=== PATIENT | female | born 1950 | race Caucasian/White ===

== ENCOUNTER 2016-12-31 10:28 | Inpatient (IN) | payer OTHER, MEDICARE ==
[~2016-12-31] VITALS: Ht 175.3 cm; Wt 107.3 kg
[2016-12-31] VITALS (10 sets, daily range): BP systolic 144–178; BP diastolic 68–87; PULSE 65–117; RESP 16–20; TEMP 97.1–98.9; O2SAT 95–99
[~2016-12-31 10:28] MED LIST: MEDR4PAK3 PO; PRIN5TAB
--- NOTE | 2016-12-31 10:57 | PD ---
HPI Chief Complaint: Abdominal Pain Time Seen by Provider: 10:37 Travel History International Travel<30 days: No Contact w/Intl Traveler<30days: No Traveled to known affect area: No History of Present Illness HPI Patient is a 66-year-old female who presents to emergency room with complaints of abdominal pain/back pain. Patient reports that on Tuesday, she was working her lawn, patient reports that she began to have back pain after her lawn work. Patient reports that throughout the week, she has continued to have pain to her back which radiates to her front which is intermittent in nature. Patient reports that she does feel diaphoretic and nauseous when she has these symptoms. Patient reports that she went to the [facility] on Tuesday and was told that she had constipation. Patient reports that she is concerned as she has been having normal bowel movements, reports that symptoms have been progressively getting worse and more intense when she has her symptoms. Patient denies any chest pain or shortness of breath. Patient admits to having nausea when she had symptoms with no episodes of emesis. Patient with no fevers or chills. Patient denies any dysuria, hematuria, urinary urgency or frequency. PFSH Past Medical History Diminished Hearing: No Hypertension: Yes Menopausal: Yes Social History Alcohol Use: Yes (1-2 wk) Tobacco Use: No Allergies-Medications (Allergen,Severity, Reaction): Coded Allergies: No Known Allergies (Verified , 12/31/16) Reported Meds & Prescriptions Reported Meds & Active Scripts Active Reported Glimepiride 4 Mg Tab 4 Mg PO BIDAC Reglan (Metoclopramide HCl) 10 Mg Tab 10 Mg PO TIDAC Cipro (Ciprofloxacin HCl) 500 Mg Tab 500 Mg PO BID Hydrochlorothiazide 25 Mg Tab 25 Mg PO DAILY Lisinopril 30 Mg Tab 30 Mg PO DAILY Review of Systems General / Constitutional: No: Fever Eyes: No: Visual changes HENT: No: Headaches Cardiovascular: Positive: Diaphoresis, No: Chest Pain or Discomfort Respiratory: No: Shortness of Breath Gastrointestinal: Positive: Nausea, Abdominal Pain, No: Constipation Genitourinary: Positive: Flank Pain, No: Urgency, Frequency, Dysuria Musculoskeletal: No: Pain Skin: No Rash Neurologic: No: Weakness Psychiatric: No: Depression Endocrine: No: Polydipsia Hematologic/Lymphatic: No: Easy Bruising Physical Exam Narrative GENERAL: NAD, nontoxic SKIN: Focused skin assessment warm/dry. HEAD: Atraumatic. Normocephalic. EYES: Pupils equal and round. No scleral icterus. No injection or drainage. ENT: No nasal bleeding or discharge. Mucous membranes pink and moist. NECK: Trachea midline. No JVD. CARDIOVASCULAR: Regular rate and rhythm. No murmur appreciated. RESPIRATORY: No accessory muscle use. Clear to auscultation. Breath sounds equal bilaterally. GASTROINTESTINAL: Abdomen soft, patient with tenderness to left flank to left upper to mid abdomen with no rebound or gaurding MUSCULOSKELETAL: No obvious deformities. No clubbing. No cyanosis. No edema. NEUROLOGICAL: Awake and alert. No obvious cranial nerve deficits. Motor grossly within normal limits. Normal speech. PSYCHIATRIC: Appropriate mood and affect; insight and judgment normal. Data Data Last Documented VS Vital Signs Date Time Temp Pulse Resp B/P Pulse Ox O2 Delivery O2 Flow Rate FiO2 12/31/16 13:35 65 16 175/68 99 Room Air 12/31/16 10:30 97.8 Orders Electrocardiogram (12/31/16 10:46) Complete Blood Count With Diff (12/31/16 10:46) Comprehensive Metabolic Panel (12/31/16 10:46) Prothrombin Time / Inr (Pt) (12/31/16 10:46) Act Partial Throm Time (Ptt) (12/31/16 10:46) Lipase (12/31/16 10:46) Chest, Single Ap (12/31/16 10:46) Ecg Monitoring (12/31/16 10:46) Bilateral Bp Monitoring (12/31/16 10:46) Iv Access Insert/Monitor (12/31/16 10:46) Oximetry (12/31/16 10:46) Sodium Chloride 0.9% Flush (Ns Flush) (12/31/16 11:00) Sodium Chlor 0.9% 1000 Ml Inj (Ns 1000 M (12/31/16 11:00) Ct Thorax/ Chest Wo Iv Contras (12/31/16 ) Ct Abd/Pel W/O Iv Contrast (12/31/16 ) Urinary Catheter Insert/Apply (12/31/16 11:51) Lorazepam Inj (Ativan Inj) (12/31/16 12:15) Urinalysis - C+S If Indicated (12/31/16 12:07) Ceftriaxone Inj (Rocephin Inj) (12/31/16 13:15) Blood Culture (12/31/16 13:17) Azithromycin Inj (Zithromax Inj) (12/31/16 13:30) Consult Urology (12/31/16 ) Admit Order (Ed Use Only) (12/31/16 14:00) Labs Laboratory Tests Test 12/31/16 12/31/16 11:18 12:15 White Blood Count 13.6 TH/MM3 Red Blood Count 3.92 MIL/MM3 Hemoglobin 11.4 GM/DL Hematocrit 33.9 % Mean Corpuscular Volume 86.3 FL Mean Corpuscular Hemoglobin 29.0 PG Mean Corpuscular Hemoglobin 33.6 % Concent Red Cell Distribution Width 11.9 % Platelet Count 371 TH/MM3 Mean Platelet Volume 9.2 FL Neutrophils (%) (Auto) 78.5 % Lymphocytes (%) (Auto) 12.1 % Monocytes (%) (Auto) 8.1 % Eosinophils (%) (Auto) 0.8 % Basophils (%) (Auto) 0.5 % Neutrophils # (Auto) 10.7 TH/MM3 Lymphocytes # (Auto) 1.6 TH/MM3 Monocytes # (Auto) 1.1 TH/MM3 Eosinophils # (Auto) 0.1 TH/MM3 Basophils # (Auto) 0.1 TH/MM3 CBC Comment AUTO DIFF Differential Comment AUTO DIFF CONFIRMED Prothrombin Time 10.2 SEC Prothromb Time International 0.9 RATIO Ratio Activated Partial 31.0 SEC Thromboplast Time Sodium Level 134 MEQ/L Potassium Level 4.8 MEQ/L Chloride Level 100 MEQ/L Carbon Dioxide Level 21.5 MEQ/L Anion Gap 13 MEQ/L Blood Urea Nitrogen 70 MG/DL Creatinine 4.60 MG/DL Estimat Glomerular Filtration 10 ML/MIN Rate Random Glucose 307 MG/DL Calcium Level 9.2 MG/DL Total Bilirubin 0.5 MG/DL Aspartate Amino Transf 15 U/L (AST/SGOT) Alanine Aminotransferase 21 U/L (ALT/SGPT) Alkaline Phosphatase 64 U/L Total Protein 7.8 GM/DL Albumin 3.0 GM/DL Lipase 340 U/L Urine Collection Type CLEAN CATCH Urine Color YELLOW Urine Turbidity CLEAR Urine pH 5.5 Urine Specific [place] 1.023 Urine Protein 30 mg/dL Urine Glucose (UA) 100 mg/dL Urine Ketones NEG mg/dL Urine Occult Blood SMALL Urine Nitrite NEG Urine Bilirubin NEG Urine Leukocyte Esterase NEG Urine RBC 10-14 /hpf Urine WBC 0-2 /hpf Urine Squamous Epithelial 6-8 /hpf Cells Urine Renal Epithelial Cells 0-5 /hpf Microscopic Urinalysis Comment CULT NOT INDICATED Urine Collection Time 12:15 [facility] Medical Decision Making Medical Screen Exam Complete: Yes Emergency Medical Condition: Yes Interpretation(s) Vital Signs Date Time Temp Pulse Resp B/P Pulse Ox O2 Delivery O2 Flow Rate FiO2 12/31/16 10:30 97.8 115 16 158/86 97 Differential Diagnosis Differential for Flank/abdominal pain could be from kidney stone, muscle strain , aortic dissection, pyelonephritis, cystitis Narrative Course Patient is a 66-year-old female who presents to emergency room for evaluation of back pain/abdominal pain which has been ongoing since Tuesday. Patient reports that her symptoms began after she did lawn work Tuesday. Patient reports that symptoms have been persistent but intermittent in nature reports that they are getting worse. Patient is tachycardic on emergency room, reports left side back pain radiating to her abdomen. Plan to obtain lab work, CTA ordered to rule out dissection. CTA canceled as patients creatine elevated at 4.6. ct without contrast ordered Patient now reports that she is currently being on antibiotics for a UTI. Patient reports that she has been on cipro for her uti CBC & BMP Diagram 12/31/16 11:18 Last Impressions Chest X-Ray 12/31/16 1046 Signed Impressions: Service Date/Time: Saturday, December 31, 2016 10:54 - CONCLUSION: Minimal basilar parenchymal opacities Petey Rodgers MD Chest CT 12/31/16 0000 Signed Impressions: Service Date/Time: Saturday, December 31, 2016 12:28 - CONCLUSION: Mild basilar infiltrates or atelectasis. Petey Rodgers MD CT abdomen/pelvis: moderate left hydronephrosis and proximal hydroureter to the level of 6-7mm in mid ureter, right kidney wtih perinephric fatty tissue stranding without any evidence of stone or hydronephrosis. CT of the chest shows minimal basilar parenchymal opacities to lower lung bases. Patient denies any cough or congestion or fever chills. Blood cultures obtained. Patient has been on cipro for treatment of UTI as outpatient. Patient with most likely pyelonephritis as she does have some stranding to her right kidney. IV Rocephin administered to patient. Patient also with 6-7 mm stone in the left mid ureter with a creatinine of 4.60. A Do catheter was placed to measure urine output. Kidney failure most likely multifactorial with causes which could be secondary to pyelonephritis as well as kidney stone. Patient denies history of renal insuffiency, reports that she had lab work performed 2 months ago by her primary care doctor and was told that "everything was normal." Call made to Dr. Cai to review case, plan to admit to [facility] for possible stent placement Case reviewed with Dr. Lewis who accepts pt to service Critical Care Narrative Aggregate critical care time was 30 minutes. Time to perform other separately billable procedures was not included in the critical care time. My time did not include minutes spent treating any other patients simultaneously or on activities that did not directly contribute to the patient's treatment. The services I provided to this patient were to treat and/or prevent clinically significant deterioration that could result in: , decompensation, deterioration I provided critical care services requiring my management, as noted below: Chart data review, documentation time, medication orders and management, vital sign assessments/reviewing monitor data, ordering and reviewing lab tests, ordering and interpreting/reviewing x-rays and diagnostic studies, care of the patient and discussion of the patient with the admitting physicians. Diagnosis Primary Impression: Kidney stone on left side Additional Impressions: Pyelonephritis Acute renal insufficiency Admitting Information Admitting Physician Requests: Anaya Friedman DO December 31, 2016 10:57
[2016-12-31] MEDS ORDERED: SODIUM CHLOR 0.9% 1000 ML INJ 1,000 ML IV ONE (11:00)
[2016-12-31] MEDS ORDERED: LISI30TA4 PO (11:06)
[2016-12-31] MEDS ORDERED: GLIM4TAB PO (11:06)
[2016-12-31] MEDS ORDERED: CIPR-9 PO (11:06)
[2016-12-31] MEDS ORDERED: HYDR25TA5 PO (11:06)
[2016-12-31] MEDS ORDERED: REGL10TA5 PO (11:06)
--- NOTE | 2016-12-31 11:18 | RADHPO ---
EXAM DATE/TIME: 12/31/2016 10:54 [facility] COMPARISON: No previous studies available for comparison. INDICATIONS : Patient states no known injury. Her complaint is left side lower back pain since last Tuesday, six day s ago. MEDICAL HISTORY : None. SURGICAL HISTORY : None. ENCOUNTER: Initial ACUITY: 4 - 6 days PAIN SCORE: 4/10 LOCATION: Left lower back. FINDINGS: Minimal scarring or atelectasis in the lung bases. No evidence of effusion. Cardiomediastinal contour s are normal. CONCLUSION: Minimal basilar parenchymal opacities Petey Rodgers MD on December 31, 2016 at 11:15 Board Certified Radiologist. This report was verified electronically.
[2016-12-31] MEDS: SODIUM CHLORIDE 0.9% FLUSH 10 ML FLUSH IVF PRN ×4 (11:31→15:19)
[2016-12-31 11:33] LABS: CHLORIDE 100 MEQ/L (98-107); POTASSIUM 4.8 MEQ/L (3.5-5.1); SODIUM (NA) 134 MEQ/L (136-145)
[2016-12-31 11:37] LABS: ANION GAP 13 MEQ/L (5-15); BICARBONATE 21.5 MEQ/L (21.0-32.0); BLOOD UREA NITROGEN 70 MG/DL (7-18); INTERNATIONAL NORMALIZED RATIO 0.9 RATIO; PROTHROMBIN TIME - PATIENT 10.2 SEC (9.8-11.6)
[2016-12-31 11:40] LABS: ALT (GPT) 21 U/L (10-53); AST (GOT) 15 U/L (15-37); GLOMERULAR FILTRATION RATE 10 ML/MIN (>89)
[2016-12-31 11:41] LABS: TOTAL BILIRUBIN ADULT 0.5 MG/DL (0.2-1.0)
[2016-12-31 11:43] LABS: ALKALINE PHOSPHATASE 64 U/L (45-117)
[2016-12-31 12:04] LABS: AUTOMATED NEUTROPHIL # 10.7 TH/MM3 (1.8-7.7); BASOPHIL # 0.1 TH/MM3 (0-0.2); BASOPHIL % 0.5 % (0.0-2.0); EOSINOPHIL # 0.1 TH/MM3 (0-0.4); EOSINOPHIL % 0.8 % (0.0-4.0); HEMATOCRIT 33.9 % (35.0-46.0); LYMPH % 12.1 % (9.0-44.0); LYMPHOCYTE # 1.6 TH/MM3 (1.0-4.8); MEAN CELL VOLUME 86.3 FL (80.0-100.0); MEAN CORPUSCULAR HGB CONC 33.6 % (32.0-36.0); MONO % 8.1 % (0.0-8.0); NEUT % 78.5 % (16.0-70.0); PLATELET COUNT 371 TH/MM3 (150-450); RED BLOOD COUNT 3.92 MIL/MM3 (4.00-5.30); RED CELL DISTRIBUTION WIDTH 11.9 % (11.6-17.2); WHITE BLOOD COUNT 13.6 TH/MM3 (4.0-11.0)
[2016-12-31 12:14] LABS: HEMO FLAGS AUTO DIFF
[2016-12-31] MEDS ORDERED: LORazepam 2 MG/ML VIAL IV PUSH ONE (12:15)
[2016-12-31 12:23] LABS: BLOOD, URINE SMALL (NEG); GLUCOSE,URINE 100 mg/dL (NEG); KETONE, URINE NEG (NEG); NITRITE,URINE NEG (NEG); PH, URINE 5.5 (5.0-8.5)
[2016-12-31 12:25] LABS: SCAN/DIFF AUTO DIFF CONFIRMED
[2016-12-31 12:33] LABS: METHOD OF COLLECTION CLEAN CATCH; URINE COLOR YELLOW (YELLW/STRAW)
[2016-12-31 12:34] LABS: COMMENT (UR) CULT NOT INDICATED; CULTURE IF INDICATED CULT NOT INDICATED; RENAL EPITHELIAL CELLS 0-5 /hpf; WBC, URINE 0-2 /hpf (0-5)
--- NOTE | 2016-12-31 12:53 | RADHPO ---
EXAM DATE/TIME: 12/31/2016 12:28 [facility] COMPARISON: No previous studies available for comparison. INDICATIONS : Intermittent upper back and left abdominal pain since Tuesday. RADIATION DOSE: 17.80 CTDIvol (mGy) ; Combined studies - Thorax/Abdomen/Pelvis MEDICAL HISTORY : Hypertension. Diabetes mellitus type 2. SURGICAL HISTORY : None. ENCOUNTER: Initial ACUITY: 4 - 6 days PAIN SCALE: 4/10 LOCATION: Left chest TECHNIQUE: Volumetric scanning of the chest was performed. Using automated exposure control and adjustment of t he mA and/or kV according to patient size, radiation dose was kept as low as reasonably achievable to obtain optimal diagnostic quality images. FINDINGS: LUNGS: Mild atelectasis or infiltrate in the lung bases bilaterally, slightly worse on the left than the rig ht. There are no suspicious nodules or masses identified. PLEURAE: There is no pleural thickening or pleural effusion. MEDIASTINUM: The heart and great vessels demonstrate no acute abnormality. There is no mediastinal or hilar lymph adenopathy. AXILLAE: Within normal limits. No lymphadenopathy. MUSCULOSKELETAL: Within normal limits for patient age. MISCELLANEOUS: The visualized upper abdominal organs demonstrate no acute abnormality. CONCLUSION: Mild basilar infiltrates or atelectasis. Petey Rodgers MD on December 31, 2016 at 12:46 Board Certified Radiologist. This report was verified electronically.
--- NOTE | 2016-12-31 13:05 | RADHPO ---
EXAM DATE/TIME: 12/31/2016 12:28 [facility] COMPARISON: No previous studies available for comparison. INDICATIONS : Intermittent upper back and left abdominal pain since Tuesday. ORAL CONTRAST: No oral contrast ingested. RADIATION DOSE: 17.80 CTDIvol (mGy) ; Combined studies - Thorax/Abdomen/Pelvis MEDICAL HISTORY : Diabetes mellitus type 2. Hypertension. SURGICAL HISTORY : None. ENCOUNTER: Initial ACUITY: 4 - 6 days PAIN SCALE: 6/10 LOCATION: Left Abdomen. TECHNIQUE: Volumetric scanning of the abdomen and pelvis was performed. Using automated exposure control and ad justment of the mA and/or kV according to patient size, radiation dose was kept as low as reasonably achievable to obtain optimal diagnostic quality images. FINDINGS: LOWER LUNGS: Mild bibasilar atelectasis left worse than right LIVER: Homogeneous density without lesion. There is no dilation of the biliary tree. No calcified gallston es. SPLEEN: Small adjacent splenule. No evidence of enlargement or mass PANCREAS: Within normal limits. KIDNEYS: Moderate left hydronephrosis and proximal hydroureter down to the level of a 6-7 mm stone in the mid ureter at about the level of the iliac crest. Mild nonspecific right-sided perinephric fatty tissue s tranding without evidence of stone or hydronephrosis. ADRENAL GLANDS: Within normal limits. VASCULAR: Retroaortic left renal vein. No aortic aneurysm. BOWEL/MESENTERY: The stomach, small bowel, and colon demonstrate no acute abnormality. There is no free intraperitone al air or fluid. ABDOMINAL WALL: Within normal limits. RETROPERITONEUM: There is no lymphadenopathy. BLADDER: No wall thickening or mass. REPRODUCTIVE: Fibroid uterus with a pedunculated fibroid extending superiorly and laterally from the right fundus r egion INGUINAL: There is no lymphadenopathy or hernia. MUSCULOSKELETAL: Within normal limits for patient age. CONCLUSION: 6-7 mm mid left ureteral stone. Petey Rodgers MD on December 31, 2016 at 12:51 Board Certified Radiologist. This report was verified electronically.
[2016-12-31] MEDS ORDERED: cefTRIAXone INJ 1,000 MG in SODIUM CHLORIDE 0.9% INJ 100 ML IV ONE (13:15)
[2016-12-31] MEDS ORDERED: AZITHROMYCIN INJ 500 MG in SODIUM CHLOR 0.9% 250 ML INJ 250 ML IV ONE (13:30)
[2016-12-31] MEDS ORDERED: ONDANSETRON HCL 4 MG/2 ML VIAL IV PUSH ONE (15:00)
--- NOTE | 2016-12-31 19:10 | HHI.HP ---
HPI Service [facility] Hospitalists Primary Care Physician Kenneth Walls M.D. Admission Diagnosis Renal failure, ureteral obstruction Chief Complaint: flank pain Travel History International Travel<30 Days: No Contact w/Intl Traveler <30 Da: No Traveled to Known Affected Are: No History of Present Illness Pt is 66 yo with dm, htn who presents with left flank pain. She thought it was msk from working in yard. went to urgent care and they thought some constipation and mild uti and gave cipro since Tuesday or 4 days. Some nausea and maybe less appetite. no hematuria. In ED found to have left ureter stone with hydro 6-7 mm. transferred to [facility] for urology. only taking tylenol for pain. Review of Systems Other left flank pain. Past Family Social History Past Medical History dm 2 htn anxiety Reported Medications Glimepiride 4 Mg Tab 4 Mg PO BIDAC Cipro (Ciprofloxacin HCl) 500 Mg Tab 500 Mg PO BID Hydrochlorothiazide 25 Mg Tab 25 Mg PO DAILY Lisinopril 30 Mg Tab 30 Mg PO DAILY Allergies: Coded Allergies: No Known Allergies (Verified , 12/31/16) Family History nc Social History no etoh/tob Physical Exam Vital Signs heent neg heart reg lung cta abd s/nt ext no edema Vital Signs Date Time Temp Pulse Resp B/P Pulse Ox O2 Delivery O2 Flow Rate FiO2 12/31/16 17:05 98.9 117 18 178/87 95 12/31/16 16:36 99 16 154/78 12/31/16 15:05 16 12/31/16 14:35 100 16 167/80 97 Room Air 12/31/16 13:35 65 16 175/68 99 Room Air 12/31/16 13:00 16 12/31/16 12:23 102 18 154/75 96 Room Air 12/31/16 11:35 105 16 144/78 96 Room Air 12/31/16 11:30 100 16 156/82 97 Room Air 12/31/16 11:07 16 98 Room Air 12/31/16 11:03 16 12/31/16 10:30 97.8 115 16 158/86 97 Laboratory Laboratory Tests Test 12/31/16 12/31/16 11:18 12:15 White Blood Count 13.6 Red Blood Count 3.92 Hemoglobin 11.4 Hematocrit 33.9 Mean Corpuscular Volume 86.3 Mean Corpuscular Hemoglobin 29.0 Mean Corpuscular Hemoglobin 33.6 Concent Red Cell Distribution Width 11.9 Platelet Count 371 Mean Platelet Volume 9.2 Neutrophils (%) (Auto) 78.5 Lymphocytes (%) (Auto) 12.1 Monocytes (%) (Auto) 8.1 Eosinophils (%) (Auto) 0.8 Basophils (%) (Auto) 0.5 Neutrophils # (Auto) 10.7 Lymphocytes # (Auto) 1.6 Monocytes # (Auto) 1.1 Eosinophils # (Auto) 0.1 Basophils # (Auto) 0.1 CBC Comment AUTO DIFF Differential Comment AUTO DIFF CONFIRMED Prothrombin Time 10.2 Prothromb Time International 0.9 Ratio Activated Partial 31.0 Thromboplast Time Sodium Level 134 Potassium Level 4.8 Chloride Level 100 Carbon Dioxide Level 21.5 Anion Gap 13 Blood Urea Nitrogen 70 Creatinine 4.60 Estimat Glomerular Filtration 10 Rate Random Glucose 307 Calcium Level 9.2 Total Bilirubin 0.5 Aspartate Amino Transf 15 (AST/SGOT) Alanine Aminotransferase 21 (ALT/SGPT) Alkaline Phosphatase 64 Total Protein 7.8 Albumin 3.0 Lipase 340 Urine Collection Type CLEAN CATCH Urine Color YELLOW Urine Turbidity CLEAR Urine pH 5.5 Urine Specific [place] 1.023 Urine Protein 30 Urine Glucose (UA) 100 Urine Ketones NEG Urine Occult Blood SMALL Urine Nitrite NEG Urine Bilirubin NEG Urine Leukocyte Esterase NEG Urine RBC 10-14 Urine WBC 0-2 Urine Squamous Epithelial 6-8 Cells Urine Renal Epithelial Cells 0-5 Microscopic Urinalysis Comment CULT NOT INDICATED Urine Collection Time 12:15 Date/Time Procedure Status Source Growth 12/31/16 13:55 Aerobic Blood Culture Received Blood Peripheral Pending 12/31/16 13:55 Anaerobic Blood Culture Received Blood Peripheral Pending Result Diagram: 12/31/16 1118 12/31/16 1118 Assessment and Plan Problem List: (1) FERMIN (acute kidney injury) Status: Acute Plan: Pt 66 yo with htn dm found to have left ureter stone/hydro 6-7mm fermin could be MF. stone, dehydration, ?related to meds like cipro or hctz will hydrate first with NS. further fermin w/up if cr fails to improve hold renaldo and hctz prn bp meds Urology consulted for cysto/stent ssi. hold oha. updated daughter at bedside. (2) Kidney stone on left side Status: Acute Plan: see above (3) HTN (hypertension) Status: Chronic Plan: see above (4) DM (diabetes mellitus) Status: Chronic Plan: see above Physician Certification 2 Midnight Certification Type: Admission for Inpatient Services Order for Inpatient Services 2The services are ordered in accordance with Medicare regulations or non- Medicare payer requirements, as applicable. In the case of services not specified as inpatient-only, they are appropriately provided as inpatient services in accordance with the 2-midnight benchmark. Estimated LOS (days): 2 2 days is the estimated time the patient will need to remain in the hospital, assuming treatment plan goals are met and no additional complications. Post-Hospital Plan: Home Mau Richard MD December 31, 2016 19:10
[2016-12-31] MEDS ORDERED: ACETAMINOPHEN/HYDROcodone 325 MG/5 MG TAB PO PRN (19:15)
[2016-12-31] MEDS ORDERED: ACETAMINOPHEN 325 MG TAB PO PRN (19:15)
[2016-12-31] MEDS ORDERED: ONDANSETRON HCL 4 MG/2 ML VIAL IV PUSH PRN (19:15)
[2016-12-31] MEDS: cloNIDine HCL 0.1 MG TAB PO PRN (21:27)
[2016-12-31] MEDS: INSULIN ASPART SUPPLEMENTAL SCALE SQ SCH (21:28)
[2016-12-31] MEDS: SODIUM CHLOR 0.9% 1000 ML INJ 1,000 ML IV SCH (21:29)
[2017-01-01] VITALS: BP 136/65; PULSE 95; RESP 19; TEMP 99; O2SAT 93
[2017-01-01 04:00] VITALS: BP 138/73; PULSE 89; RESP 19; TEMP 97.8; O2SAT 94
[2017-01-01] MEDS: SODIUM CHLOR 0.9% 1000 ML INJ 1,000 ML IV SCH ×3 (05:27→17:00)
[2017-01-01] MEDS: INSULIN ASPART SUPPLEMENTAL SCALE SQ SCH ×4 (05:29→20:02)
[2017-01-01 06:43] LABS: BICARBONATE 20.1 MEQ/L (21.0-32.0); POTASSIUM 4.6 MEQ/L (3.5-5.1)
[2017-01-01 08:00] VITALS: BP 140/75; PULSE 89; RESP 17; TEMP 97.4; O2SAT 94
[2017-01-01] MEDS ORDERED: PNEUMOCOCCAL POLYVALENT INJ 25 MCG/0.5 ML SYR IM ONE (09:00)
[2017-01-01] MEDS: cefTRIAXone INJ 1,000 MG in SODIUM CHLORIDE 0.9% INJ 100 ML IV SCH (09:09)
[2017-01-01] MEDS ORDERED: INFLUENZA VIRUS VACCINE (QUADRIVALENT) 0.5 ML SYR IM ONE (10:00)
--- NOTE | 2017-01-01 11:43 | PD.CONS ---
[facility] Service Urology Consult Requested By Reason for Consult Left ureteral calculus Primary Care Physician Kenneth Walls M.D. Diagnosis: (1) FERMIN (acute kidney injury) ICD Code: N17.9 (2) Kidney stone on left side ICD Code: N20.0 (3) HTN (hypertension) ICD Code: I10 (4) DM (diabetes mellitus) ICD Code: E11.9 History of Present Illness 66-year-old female with no prior history of nephrolithiasis who presented to the emergency room with worsening left flank pain. Patient reports that symptoms began 5 days prior to arrival while gardening. She thought perhaps she had pulled a muscle however the symptoms never fully abated. Workup in the restroom include a CT scan of the abdomen and pelvis that demonstrated an approximate 7 mm mid left ureteral calculus causing left hydronephrosis. There is no hydronephrosis or stone seen on the right. Blood work included elevation of serum creatinine measured at 4.6. Patient denies diarrhea and only had one episode of emesis over the past week. She denies dysuria or gross hematuria. At the time of consultation the patient reported that her pain was well managed. Review of Systems Constitutional: DENIES: Fever, Night Sweats Genitourinary: DENIES: Hematuria, Dysuria Musculoskeletal: COMPLAINS OF: Back pain (left flank) Past Family Social History Past Medical History Diabetes mellitus Hypertension Anxiety Past Surgical History No prior major surgery Reported Medications Refer to EMR Allergies: Coded Allergies: No Known Allergies (Verified , 12/31/16) Active Ordered Medications Refer to EMR Family History Reviewed and noncontributory Social History Denies tobacco, alcohol or intravenous drug abuse Physical Exam Vital Signs Date Time Temp Pulse Resp B/P Pulse Ox O2 Delivery O2 Flow Rate FiO2 01/01/17 08:00 97.4 89 17 140/75 94 01/01/17 04:00 97.8 89 19 138/73 94 01/01/17 00:00 99.0 95 19 136/65 93 12/31/16 20:00 97.1 114 19 178/87 97 12/31/16 17:05 98.9 117 18 178/87 95 12/31/16 16:36 99 16 154/78 12/31/16 15:05 16 12/31/16 14:35 100 16 167/80 97 Room Air 12/31/16 13:35 65 16 175/68 99 Room Air 12/31/16 13:00 16 12/31/16 12:23 102 18 154/75 96 Room Air Physical Exam GENERAL: This is a well-nourished, well-developed patient, in no apparent distress. SKIN: No rashes, ecchymoses or lesions. Cool and dry. HEAD: Atraumatic. Normocephalic. No temporal or scalp tenderness. EYES: Pupils equal round and reactive. Extraocular motions intact. No scleral icterus. No injection or drainage. ENT: Nose without bleeding, purulent drainage or septal hematoma. Throat without erythema, tonsillar hypertrophy or exudate. Uvula midline. Airway patent. NECK: Trachea midline. No JVD or lymphadenopathy. Supple, nontender, no meningeal signs. GASTROINTESTINAL: Abdomen soft, non-tender, nondistended. No hepato-splenomegaly , or palpable masses. No guarding. GENITOURINARY: No CVA tenderness MUSCULOSKELETAL: Extremities without clubbing, cyanosis, or edema. No joint tenderness, effusion, or edema noted. No calf tenderness. Negative Homans sign bilaterally. NEUROLOGICAL: Awake and alert. Cranial nerves II through XII intact. Motor and sensory grossly within normal limits. Five out of 5 muscle strength in all muscle groups. Normal speech. Laboratory Tests Test 12/31/16 01/01/17 12:15 05:22 Urine Collection Type CLEAN CATCH Urine Color YELLOW Urine Turbidity CLEAR Urine pH 5.5 Urine Specific Sylvia 1.023 Urine Protein 30 Urine Glucose (UA) 100 Urine Ketones NEG Urine Occult Blood SMALL Urine Nitrite NEG Urine Bilirubin NEG Urine Leukocyte Esterase NEG Urine RBC 10-14 Urine WBC 0-2 Urine Squamous Epithelial 6-8 Cells Urine Renal Epithelial Cells 0-5 Microscopic Urinalysis Comment CULT NOT INDICATED Urine Collection Time 12:15 Sodium Level 135 Potassium Level 4.6 Chloride Level 103 Carbon Dioxide Level 20.1 Anion Gap 12 Blood Urea Nitrogen 59 Creatinine 3.69 Estimat Glomerular Filtration 12 Rate Random Glucose 197 Calcium Level 8.5 Date/Time Procedure Status Source Growth 12/31/16 14:00 Aerobic Blood Culture - Preliminary Resulted Blood Peripheral NO GROWTH IN 1 DAY 12/31/16 14:00 Anaerobic Blood Culture - Preliminary Resulted Blood Peripheral NO GROWTH IN 1 DAY 12/31/16 13:17 Aerobic Blood Culture Received Blood Peripheral Pending 12/31/16 13:17 Anaerobic Blood Culture Received Blood Peripheral Pending Result Diagram: 12/31/16 1118 01/01/17 0522 Imaging Last Impressions Chest X-Ray 12/31/16 1046 Signed Impressions: Service Date/Time: Saturday, December 31, 2016 10:54 - CONCLUSION: Minimal basilar parenchymal opacities Petey Rodgers MD Chest CT 12/31/16 0000 Signed Impressions: Service Date/Time: Saturday, December 31, 2016 12:28 - CONCLUSION: Mild basilar infiltrates or atelectasis. Petey Rodgers MD Abdomen/Pelvis CT 12/31/16 0000 Signed Impressions: Service Date/Time: Saturday, December 31, 2016 12:28 - CONCLUSION: 6-7 mm mid left ureteral stone. Petey Rodgers MD Assessment and Plan Assessment and Plan Urologic impression: #1 obstructing 7 mm left midureteral calculus #2 elevation of the serum creatinine cannot be entirely explained by the presence of a unilateral obstructing ureteral calculus Plan: #1 keep patient nothing by mouth #2 patient scheduled for cystoscopy, left retrograde pyelogram and left ureteral stent placement today #3 will eventually require outpatient shockwave lithotripsy Doug Cai MD January 01, 2017 11:42
[2017-01-01 12:00] VITALS: BP 154/72; PULSE 92; RESP 17; TEMP 97.5; O2SAT 94
[2017-01-01] MEDS: LORazepam 1 MG TAB PO PRN ×2 (12:15→22:29)
[2017-01-01] MEDS ORDERED: PROPOFOL 200 MG/20 ML AMP IV ONE (12:46)
[2017-01-01] MEDS ORDERED: ONDANSETRON HCL 4 MG/2 ML VIAL IV PUSH ONE (12:46)
[2017-01-01] MEDS ORDERED: fentaNYL CITRATE 250 MCG/5 ML AMP ONE (13:08)
[2017-01-01] MEDS ORDERED: MIDAZOLAM HCL 2 MG/2 ML VIAL ONE (13:08)
[2017-01-01] MEDS ORDERED: IOHEXOL 350 MG/ML 10 ML VIAL (for RAD DIAG) OTHER ONE (13:45)
--- NOTE | 2017-01-01 14:18 | PD.OP ---
Operative Report Date of Surgery: January 01, 2017 Preoperative Diagnosis: (1) Ureteral calculus, left Postoperative Diagnosis: (1) Ureteral calculus, left Procedure: Cystoscopy, left retrograde pyelogram, left ureteroscopy, endoscopic stone extraction and insertion left open-ended ureteral catheter. Anesthesia: General Surgeon: Doug Cai Senior Scheduler(s): None Operation and Findings: Indication for procedure: Case of a pleasant 66-year-old female with an obstructing 7 mm mid left ureteral calculus who presents now for cystoscopy, left foot dated pyelogram and left ureteral stent placement. Operative procedure in detail: Patient was brought to the operating room suite and placed supine on the cystoscopy table. She was then placed under general anesthesia. She was then repositioned in the dorsal lithotomy position and prepped and draped in normal sterile fashion. After appropriate timeout was undertaken I proceeded with cystoscopic evaluation utilizing the rigid cystoscope with a 20 Czech sheath and 30 lens. Careful inspection demonstrated the left ureteral calculus to be at the left ureteral orifice with a few tiny stone fragments floating within the urinary bladder. I utilized the flexible forceps and was able to retrieve the calculus under direct vision. I next inserted a sensor 0.035 wire of the patient's left ureter without any difficulty. A 6 Czech open catheter was advanced over the wire several centimeters beyond the ureteral orifice and the wire withdrawn. A retrograde pyelogram study was then performed that demonstrated a dilated collecting system with sluggish drainage of the distal third of the ureter. The guidewire was introduced and the open-ended catheter was removed. The guidewire was secured to sterile drape with hemostat and the self dilating ureteroscope was then utilized to perform visualization of the left ureter for any retained stone fragments. I was able to easily advance the ureteroscope all the way up to the left UPJ and no additional stone fragments were seen. The scope was then withdrawn and the cystoscope reintroduced. The 6 Czech open ureteral catheter was advanced over the previously past wire and into the left renal pelvis and the wire was withdrawn. A 16 Czech 10 cc Do catheter was then placed and the ureteral catheter anchored to the Do via a connector. Both catheters were then placed to gravity drainage. The patient was transferred to the PACU in satisfactory condition having tolerated the procedures well. Doug Cai MD January 01, 2017 14:18
[2017-01-01 16:00] VITALS: BP 159/83; PULSE 104; RESP 18; TEMP 96.5; O2SAT 94
--- NOTE | 2017-01-01 16:37 | HHI.PR ---
Subjective Remarks feels well. Objective Vitals heart reg lung cta abd s/nt ext no edema Vital Signs Date Time Temp Pulse Resp B/P Pulse Ox O2 Delivery O2 Flow Rate FiO2 01/01/17 16:00 96.5 104 18 159/83 94 01/01/17 14:45 97.6 90 12 138/65 96 Room Air 01/01/17 14:30 94 12 135/65 96 Nasal Cannula 2 01/01/17 14:22 97.6 95 12 131/64 97 Nasal Cannula 2 01/01/17 12:00 97.5 92 17 154/72 94 01/01/17 08:00 97.4 89 17 140/75 94 01/01/17 04:00 97.8 89 19 138/73 94 01/01/17 00:00 99.0 95 19 136/65 93 12/31/16 20:00 97.1 114 19 178/87 97 12/31/16 17:05 98.9 117 18 178/87 95 12/31/16 12/31/16 01/01/17 15:00 23:00 07:00 Intake Total 470 ml 120 ml Output Total 500 ml 600 ml Balance -30 ml -480 ml Intake Oral 120 ml 120 ml IV Total 350 ml Output Urine Total 500 ml 600 ml # Bowel Movements 0 0 Result Diagram: 12/31/16 1118 01/01/17 0522 A/P Problem List: (1) FERMIN (acute kidney injury) Status: Acute Plan: Pt 66 yo with htn dm found to have left ureter stone/hydro 6-7mm fermin could be MF. stone, dehydration, ?related to meds like cipro or hctz renal function slowly improving. cont agressive ivf and recheck in AM DR Cai removed stone and placed stent. pulliam and stent removal tomorrow and plan d/c home. hold renaldo and hctz prn bp meds ssi. hold oha. (2) Kidney stone on left side Status: Acute Plan: see above (3) HTN (hypertension) Status: Chronic Plan: see above (4) DM (diabetes mellitus) Status: Chronic Plan: see above Mau Richard MD January 01, 2017 16:37
[2017-01-01 20:00] VITALS: BP 160/75; PULSE 103; RESP 17; TEMP 97.5; O2SAT 97
--- NOTE | 2017-01-01 22:04 | EKG ---
Date Performed: 12/31/2016 Time Performed: 10:59:24 PTAGE: 66 years EKG: Sinus tachycardia Possible left anterior fascicular block Borderline ECG NO PREVIOUS TRACING DOCTOR: Mychal Boudreaux Interpretating Date/Time 01/01/2017 22:00:32
[2017-01-01] MEDS: cloNIDine HCL 0.1 MG TAB PO PRN (23:15)
[2017-01-02] VITALS: BP 179/76; PULSE 101; RESP 17; TEMP 95.6; O2SAT 96
[2017-01-02] MEDS: SODIUM CHLOR 0.9% 1000 ML INJ 1,000 ML IV SCH ×3 (01:08→16:02)
[2017-01-02 04:00] VITALS: BP 140/72; PULSE 86; RESP 17; TEMP 96.8; O2SAT 96
[2017-01-02 04:22] LABS: AUTOMATED NEUTROPHIL # 5.9 TH/MM3 (1.8-7.7); BASOPHIL % 0.3 % (0.0-2.0); EOSINOPHIL # 0.2 TH/MM3 (0-0.4); EOSINOPHIL % 1.6 % (0.0-4.0); HEMATOCRIT 30.9 % (35.0-46.0); LYMPH % 33.5 % (9.0-44.0); LYMPHOCYTE # 3.5 TH/MM3 (1.0-4.8); MEAN CELL VOLUME 86.6 FL (80.0-100.0); MEAN CORPUSCULAR HEMOGLOBIN 28.8 PG (27.0-34.0); MEAN CORPUSCULAR HGB CONC 33.2 % (32.0-36.0); MONO % 8.5 % (0.0-8.0); NEUT % 56.1 % (16.0-70.0); PLATELET COUNT 346 TH/MM3 (150-450); RED BLOOD COUNT 3.57 MIL/MM3 (4.00-5.30); RED CELL DISTRIBUTION WIDTH 12.5 % (11.6-17.2); WHITE BLOOD COUNT 10.5 TH/MM3 (4.0-11.0)
[2017-01-02 04:23] LABS: BICARBONATE 21.5 MEQ/L (21.0-32.0); POTASSIUM 4.4 MEQ/L (3.5-5.1)
[2017-01-02 04:27] LABS: HEMO FLAGS AUTO DIFF
[2017-01-02] MEDS: INSULIN ASPART SUPPLEMENTAL SCALE SQ SCH ×3 (06:45→17:07)
[2017-01-02] MEDS: cefTRIAXone INJ 1,000 MG in SODIUM CHLORIDE 0.9% INJ 100 ML IV SCH (07:32)
[2017-01-02 08:00] VITALS: BP 138/72; PULSE 89; RESP 17; TEMP 97; O2SAT 94
[2017-01-02 09:19] LABS: PLATELET ESTIMATE SMEAR NORMAL (NORMAL); PLATELET MORPHOLOGY NORMAL (NORMAL); SCAN/DIFF AUTO DIFF CONFIRMED
[2017-01-02 12:00] VITALS: BP 155/73; PULSE 88; RESP 17; TEMP 97.6; O2SAT 95
--- NOTE | 2017-01-02 13:27 | HHI.PR ---
Subjective Remarks FEELS GREAT. WANTS TO GO HOME. Objective Vitals heart reg lung cta abd /snt ext no edema Vital Signs Date Time Temp Pulse Resp B/P Pulse Ox O2 Delivery O2 Flow Rate FiO2 01/02/17 12:00 97.6 88 17 155/73 95 01/02/17 08:00 97.0 89 17 138/72 94 01/02/17 04:00 96.8 86 17 140/72 96 01/02/17 00:00 95.6 101 17 179/76 96 01/01/17 20:00 97.5 103 17 160/75 97 01/01/17 16:00 96.5 104 18 159/83 94 01/01/17 14:45 97.6 90 12 138/65 96 Room Air 01/01/17 14:30 94 12 135/65 96 Nasal Cannula 2 01/01/17 14:22 97.6 95 12 131/64 97 Nasal Cannula 2 01/01/17 01/01/17 01/02/17 15:00 23:00 07:00 Intake Total 1545 ml 655 ml 1362 ml Output Total 250 ml 1150 ml 750 ml Balance 1295 ml -495 ml 612 ml Intake Oral 240 ml 240 ml IV Total 1295 ml 415 ml 1122 ml Other 250 ml Output Urine Total 250 ml 1150 ml 750 ml Result Diagram: 01/02/17 0334 01/02/17 0334 A/P Problem List: (1) FERMIN (acute kidney injury) Status: Acute Plan: Pt 66 yo with htn dm found to have left ureter stone/hydro 6-7mm fermin could be MF. stone, dehydration, ?related to meds like cipro or hctz renal function improving stone extracted. stent and pulliam out. urinating well stat bmp..if still trending down then d/c home with f/u. stone sent for analysis. (2) Kidney stone on left side Status: Acute Plan: see above (3) HTN (hypertension) Status: Chronic Plan: see above (4) DM (diabetes mellitus) Status: Chronic Plan: see above Mau Richard MD January 02, 2017 13:27
--- NOTE | 2017-01-02 13:30 | HHI.DCPOC ---
Discharge Care Plan Diagnosis: (1) Kidney stone on left side (2) DM (diabetes mellitus) (3) HTN (hypertension) Goals to Promote Your Health * To prevent worsening of your condition and complications * To maintain your health at the optimal level Directions to Meet Your Goals Take your medications as prescribed Follow your dietary instruction Follow activity as directed Keep your appointments as scheduled Take your immunizations and boosters as scheduled If your symptoms worsen call your PCP, if no PCP go to Urgent Care Center or Emergency Room Smoking is Dangerous to Your Health. Avoid second hand smoke Call the 24-hour hour crisis hotline for domestic abuse at Mau Richard MD January 02, 2017 13:30
--- NOTE | 2017-01-02 13:53 | HHI.PR ---
Subjective Patient symptoms today Postoperative day #1 Feels great Reports Do and left ureteral catheter were removed this morning and she is now voiding without difficulty Objective Vital Signs Vital Signs Date Time Temp Pulse Resp B/P Pulse Ox O2 Delivery O2 Flow Rate FiO2 01/02/17 12:00 97.6 88 17 155/73 95 01/02/17 08:00 97.0 89 17 138/72 94 01/02/17 04:00 96.8 86 17 140/72 96 01/02/17 00:00 95.6 101 17 179/76 96 01/01/17 20:00 97.5 103 17 160/75 97 01/01/17 16:00 96.5 104 18 159/83 94 01/01/17 14:45 97.6 90 12 138/65 96 Room Air 01/01/17 14:30 94 12 135/65 96 Nasal Cannula 2 01/01/17 14:22 97.6 95 12 131/64 97 Nasal Cannula 2 Intake & Output 01/02/17 01/02/17 06:59 18:59 Intake Total 2017 ml Output Total 1900 ml Balance 117 ml Intake Oral 480 ml IV Total 1537 ml Output Urine Total 1900 ml Result Diagram: 01/02/17 0334 01/02/17 033 Objective Remarks Abdomen soft, nondistended nontender No CVA tenderness Medications and IVs Current Medications Medications (Trade) Dose Ordered Sig/Jefe Route Start Time Stop Time Status Last Admin (NS Flush) 2 ml UNSCH PRN IVF 12/31/16 11:00 12/31/16 15:19 (Zofran Inj) 4 mg Q4HR PRN IV PUSH 12/31/16 19:15 (Tylenol) 650 mg Q4H PRN PO 12/31/16 19:15 Clonidine 0.1 mg 0.1 mg Q4H PRN PO 12/31/16 19:15 01/01/17 23:15 (Rocephin Inj/NS Inj) 100 ml @ 200 mls/hr Q24H IV 01/01/17 09:00 01/02/17 07:32 ([place] 5-325 Mg) 1 tab Q4H PRN PO 12/31/16 19:15 01/01/17 20:07 Lorazepam 1 mg 1 mg Q8H PRN PO 01/01/17 11:00 01/01/17 22:29 (NS 1000 ml Inj) 1,000 ml @ 125 mls/hr Q8H IV 01/01/17 17:00 01/02/17 07:32 Assessment and Plan Assessment and Plan Urologic impression: #1 resolution of left ureteral calculus #2 serum creatinine continues to improve Plan: #1 urologically stable to discharge home #2 office follow up in approximately 2 weeks 012-0314. Doug Cai MD January 02, 2017 13:53
[2017-01-02 15:48] LABS: BICARBONATE 23.9 MEQ/L (21.0-32.0); POTASSIUM 4.2 MEQ/L (3.5-5.1)
[2017-01-02] MEDS ORDERED: HYDR25TA5 PO ×2 (15:53→17:27)
[2017-01-02] MEDS ORDERED: LISI30TA4 PO ×2 (15:53→17:27)
== END 2017-01-02 17:47 | disposition home or self-care (01) | DRG 669 ==
LOC: PHED 10:28 → PHEDA 14:03 → N07B 17:02
PROVIDERS: ADMIT Hospitalist; ATTEND Hospitalist
PROC: 0T778DZ Dilation of Left Ureter with Intraluminal Device, Via Natural or Artificial Opening Endoscopic (ICD-10-PCS; 2017-01-01)
PROC: BT1F1ZZ Fluoroscopy of Left Kidney, Ureter and Bladder using Low Osmolar Contrast (ICD-10-PCS; 2017-01-01)
PROC: 0TC78ZZ Extirpation of Matter from Left Ureter, Via Natural or Artificial Opening Endoscopic (ICD-10-PCS; principal; 2017-01-01 13:18)
DX: N13.2 Hydronephrosis with renal and ureteral calculous obstruction (principal); N17.9 Acute kidney failure, unspecified; I10 Essential (primary) hypertension; E11.9 Type 2 diabetes mellitus without complications
CPT/HCPCS: 51702; 71010; 71250; 74176; 74420; 80048; 80053; 81001; 82370; 82948; 83690; 85025; 85610; 85730; 87040; 88300; 90732; 93005; 96374; C1769; J0456; J0696; J1815; J2060; J2250; J2405; J3010; J7030; J7050; Q9967